=== PATIENT | female | born 1940 | race Caucasian/White ===

== ENCOUNTER 2019-01-01 05:11 | Inpatient (IN) | payer OTHER ==
[~2019-01-01] VITALS: Ht 152.4 cm; Wt 60.8 kg
[2019-01-01] VITALS (7 sets, daily range): BP systolic 121–140; BP diastolic 58–69; PULSE 67–89; RESP 17–20
--- NOTE | 2019-01-01 13:20 | HP ---
Date/Time of Note Date/Time of Note DATE: 01/01/19 TIME: 13:20 Assessment/Plan VTE Prophylaxis Pharmacological prophylaxis: LMWH Assessment/Plan Hospital Course 78-year-old female with no significant past medical history who went to the local emergency room because of multiple complaints, who was found to have evidence of community-acquired pneumonia and was transferred to [facility] for further evaluation because of insurance reasons. 1. Community-acquired pneumonia (reported). -Start ceftriaxone plus Zithromax. -No evidence of any hypoxia. -Repeat CXR, for unable to view the CD of CXR from the transferring facility because of technical reasons. 2. Hyponatremia. -Sodium of 129 at the transferring facility. -Etiology unclear. -Obtain serum and urine osmolality. -Obtain a urine sodium level. 3. Left chest wall pain. -Most probably musculoskeletal in origin. -Troponin x2 from the transferring facility negative. -Trend troponins. Plan: The patient will be admitted to inpatient telemetry floor. The patient will be started on a low-cholesterol diet. The patient will be started on DVT prophylaxis. The patient will remain a full code. Activities will be as tolerated. The rest of the patient's management will be based on the clinical course and the results of diagnostic studies. Based on the patient's clinical presentation, she most probably requires at least 1 midnight's stay for further management and evaluation of her clinical presentation. The patient was seen in collaboration with Dr. Whyte. [facility] Admit Date/Time Admit Date/Time Jan 01, 2019 at 12:59 Hx of Present Illness This is an 78-year-old female who denies any significant past medical history. The patient went to the emergency room at [facility] because of pain in the mid chest and back for 2-4 weeks along with shivering and dizziness. The patient is a very poor historian. The patient was complaining of a productive cough. The patient was complaining of febrile illness. The patient verbalized poor appetite. The patient denied any nausea or vomiting. The patient was complaining of headache. The patient denied any sick contacts. The patient denied any dyspnea. The patient denied any dysuria or hematuria. In the emergency room at [facility], the patient was afebrile. The patient's chest x-ray was showing an infiltrate.(as per report) Therefore, the patient was started on antimicrobial therapy for a community-acquired pneumonia. The patient was transferred to [facility] for further evaluation because of insurance reasons. ROS Constitutional: chills, febrile Eyes: no complaints ENT: no complaints Respiratory: cough Cardiovascular: chest pain Gastrointestinal: no complaints Genitourinary: no complaints Musculoskeletal: back pain Skin: no complaints Neurologic: no complaints Endocrine: no complaints Lymphatic: no complaints Psychological: no complaints Immunologic: no complaints PMH/Family/Social Past Medical History Medical History: no pertinent history Coded Allergies: No Known Allergies (Verified Allergy, Unknown, 01/01/19) Past Surgical History Past Surgical Hx: no surgical history Social History Alcohol Use: none Smoking Status: Never smoker Drug Use: none Exam/Review of Systems Vital Signs Vitals Vital Signs Date Temp Pulse Resp B/P (MAP) Pulse Ox O2 O2 Flow FiO2 Time Delivery Rate 01/01/19 82 13:14 Exam Exam General: Adequately build 78 year-old female lying in bed in no apparent distress. HEENT: Normocephalic, atraumatic. Eyes: Anicteric sclerae, conjunctivae clear. ENT: Nasal septum midline, oral mucosa moist. Neck supple. Respiratory: Bilaterally diminished breath sounds. No use of accessory muscles of respiration. No adventitious breath sounds. Cardiovascular: S1, S2 heard. Regular rate and rhythm. Abdomen: Soft and nondistended. Minimal epigastric tenderness. Bowel sounds positive in all 4 quadrants. Genitourinary: Deferred. Extremities: No cyanosis, no clubbing, no edema. Peripheral pulses palpable. Tenderness to palpation in the left shoulder joint. Neurologic: Cranial nerves II through XII grossly intact. The patient is awake, alert, and oriented. Skin: Normal skin turgor. No skin rashes. Additional Comments Labs from the Transferring Facility CBC: WBC 4.9, hemoglobin 10.8, hematocrit 31.6, platelet count 109 CMP: Sodium 129, potassium 4.3, chloride 100, carbon dioxide 19, anion gap 10, BUN 14, creatinine 0.84, GFR 66, glucose 128, calcium 8.7, albumin 3.7, alkaline phosphatase 183, AST 53, ALT 26,. Troponin I: 0.023 Urinalysis: Urine nitrate negative, urine WBC 2. STEPHANIE MAGALLANES NP Jan 01, 2019 13:20
[2019-01-01] MEDS ORDERED: NACL 0.9% 3 ML SYG IV SCH (13:30)
[2019-01-01] MEDS ORDERED: ONDANSETRON 4 MG INJ IV PRN (13:30)
[2019-01-01] MEDS ORDERED: ACETAMINOPHEN 325 MG TAB PO PRN (13:30)
[2019-01-01] MEDS ORDERED: traMADol 50 MG TAB PO PRN (14:30)
[2019-01-01] MEDS ORDERED: hydrALAzine 20 MG INJ IV PRN (14:30)
[2019-01-01] MEDS: CEFTRIAXONE 1 GM/50 ML (PMX) 50 ML IVPB SCH (14:55)
[2019-01-01] MEDS ORDERED: AZITHROMYCIN 500MG/NS (PMX) 250 ML IVPB SCH (16:00)
[2019-01-02] VITALS (7 sets, daily range): BP systolic 90–128; BP diastolic 50–58; PULSE 63–79; RESP 17–18
[2019-01-02] MEDS ORDERED: ENOXAPARIN 40 MG/0.4 ML SYG SC SCH (09:00)
--- NOTE | 2019-01-02 12:09 | PDOCDIS ---
Discharge Instructions CONDITION [id number] Patient Condition: [id number] Stable HOME CARE INSTRUCTIONS: [id number] Diet Instructions: [id number] Regular FOLLOW UP/APPOINTMENTS Follow-up Plan Mykel Shetty MD Specialty: Internal Medicine Office Address: [address] [place], [place] [id number] Office OTHER ORDERS: Other Orders: 1. Take a regular diet. 2. Resume activities as tolerated. 3. Follow-up with your primary care physician in 1 week. If you do not have a primary care physician, please call Dr. Mykel Shetty's office. 4. Please go to the nearest emergency room if you have any significant shortness of breath, chest pain, persistent fevers, or any other unusual signs/symptoms. STEPHANIE MAGALLANES NP Jan 02, 2019 12:09
--- NOTE | 2019-01-02 12:14 | DS ---
Date/Time of Note Date/Time of Note DATE: 01/02/19 TIME: 12:10 Discharge Summary Admission/Discharge Info Admit Date/Time Jan 01, 2019 at 12:59 Discharge Date/Time Discharge Diagnosis 1. Normocytic, normochromic anemia. 2. Hyponatremia. 3. Left chest wall pain. Patient Condition: Stable Procedures CXR IMPRESSION: Mild cardiomegaly. Otherwise, no definite abnormalities are identified. Hx of Present Illness This is an 78-year-old female who denies any significant past medical history. The patient went to the emergency room at [facility] because of pain in the mid chest and back for 2-4 weeks along with shivering and dizziness. The patient is a very poor historian. The patient was complaining of a productive cough. The patient was complaining of febrile illness. The patient verbalized poor appetite. The patient denied any nausea or vomiting. The patient was complaining of headache. The patient denied any sick contacts. The patient denied any dyspnea. The patient denied any dysuria or hematuria. In the emergency room at [facility], the patient was afebrile. The patient's chest x-ray was showing an infiltrate.(as per report) Therefore, the patient was started on antimicrobial therapy for a community-acquired pneumonia. The patient was transferred to [facility] for further evaluation because of insurance reasons. Hospital Course The patient was admitted to inpatient setting. The patient was started on Zithromax plus Rocephin for reported community-acquired pneumonia. It was unable to view the CD of chest x-ray from the transferring facility because of technical reasons. The patient did not have any evidence of hypoxia. The patient did not have any underlying leukocytosis or febrile illness. The chest x-ray that was done at [facility] was negative for any underlying pneumonia. The patient had no clinical evidence of any pneumonia. Therefore, the patient's antibiotics were discontinued. The patient probably had some viral syndrome causing the patient's symptoms that made her go to the emergency room. The patient had a sodium level of 129 at the transferring facility. However, the patient's sodium level remained stable during the hospital course at [facility]. The patient also was complaining of left-sided chest wall/shoulder pain that was reproducible upon palpation, consistent with musculoskeletal pain. The patient's troponins x2 from the transferring facility as well as troponin x2 from [facility] were negative. The patient has no other acute illnesses. The patient is a fairly healthy person and does not take any routine medications at home. Any chronic conditions including left-sided chest/shoulder pain, the patient can follow-up with her primary care physician as outpatient for addressing shoulder pain. Discharge Instructions 1. Take a regular diet. 2. Resume activities as tolerated. 3. Follow-up with your primary care physician in 1 week. If you do not have a primary care physician, please call Dr. Mykel Shetty's office. 4. Please go to the nearest emergency room if you have any significant shortness of breath, chest pain, persistent fevers, or any other unusual signs/symptoms. The patient's family verbalized understanding of the discharge instructions. The patient was seen in collaboration with Dr. Whyte. Home Meds No Active Prescriptions or Reported Meds Follow-up Plan Mykel Shetty MD Specialty: Internal Medicine Office Address: [address] [place] [address] [address] [facility] Time spent on discharge: > 30 minutes Pending Labs Laboratory Tests Test 01/01/19 14:49 01/01/19 19:40 01/02/19 05:30 White Blood Count 4.3 4.9 10^3/ul (4.8-10.8) 10^3/ul (4.8-10.8) Red Blood Count 3.17 3.09 10^6/ul (4.20-5.40) 10^6/ul (4.20-5.40 ) Hemoglobin 9.9 9.8 g/dl (12.0-16.0) g/dl (12.0-16.0) Hematocrit 29.0 % (37.0-47.0) 28.8 % (37.0-47.0) Mean Corpuscular 91.5 93.2 Volume fl (82.0-101.0) fl (82.0-101.0) Mean Corpuscular 31.2 pg (29.0-33.0) 31.7 Hemoglobin pg (29.0-33.0) Mean Corpuscular 34.1 34.0 Hemoglobin Concent g/dl (32.0-37.0) g/dl (32.0-37.0) Red Cell 13.1 % (11.5-14.5) 13.3 % (11.5-14.5) Distribution Width Platelet Count 112 99 10^3/UL (140-415) 10^3/UL (140-415) Mean Platelet 11.2 fl (7.4-10.4) 11.4 fl (7.4-10.4) Volume Immature 0.200 0.200 Granulocytes % % (0.001-0.429) % (0.001-0.429) Neutrophils % 42.6 % (39.0-77.0) 34.7 % (39.0-77.0) Lymphocytes % 48.8 % (15.0-51.0) 52.4 % (15.0-51.0) Monocytes % 7.0 % (0.0-11.0) 8.7 % (0.0-11.0) Eosinophils % 0.9 % (0.0-7.0) 3.4 % (0.0-7.0) Basophils % 0.5 % (0.0-2.0) 0.6 % (0.0-2.0) Nucleated Red Blood 0.0 0.0 Cells % /100WBC (0.0-0.0) /100WBC (0.0-0.0) Immature 0.010 0.010 Granulocytes # 10^3/ul (0.0-0.031) 10^3/ul (0.0-0.031 ) Neutrophils # 1.8 1.7 10^3/ul (1.6-7.5) 10^3/ul (1.6-7.5) Lymphocytes # 2.1 2.6 10^3/ul (0.8-2.9) 10^3/ul (0.8-2.9) Monocytes # 0.3 0.4 10^3/ul (0.3-0.9) 10^3/ul (0.3-0.9) Eosinophils # 0.0 0.2 10^3/ul (0.0-0.5) 10^3/ul (0.0-0.5) Basophils # 0.0 0.0 10^3/ul (0.0-0.1) 10^3/ul (0.0-0.1) Nucleated Red Blood 0.0 0.0 Cells # 10^3/ul (0.0-0.0) 10^3/ul (0.0-0.0) Erythrocyte 30 mm/Hr (0-30) Sedimentation Rate Sodium Level 142 142 mmol/L (135-144) mmol/L (135-144) Potassium Level 4.0 3.9 mmol/L (3.5-5.1) mmol/L (3.5-5.1) Chloride Level 113 mmol/L (97-110) 110 mmol/L (97-110) Carbon Dioxide 21 mmol/L (21-31) 22 mmol/L (21-31) Level Anion Gap 8 (5-13) 10 (5-13) Blood Urea 12 mg/dl (7-20) 14 mg/dl (7-20) Nitrogen Creatinine 0.75 0.83 mg/dl (0.44-1.00) mg/dl (0.44-1.00) Est Glomerular mL/min (>60) mL/min (>60) Filtrat Rate mL/min Glucose Level 97 mg/dl (70-220) 83 mg/dl (70-220) Hemoglobin A1c 5.1 % (0-5.9) Osmolality 289 mOsm/kg (280-295) Calcium Level 9.0 8.8 mg/dl (8.4-10.2) mg/dl (8.4-10.2) Phosphorus Level 3.3 mg/dl (2.5-4.9) 3.7 mg/dl (2.5-4.9) Magnesium Level 2.1 mg/dl (1.7-2.5) 2.0 mg/dl (1.7-2.5) Total Bilirubin 0.7 mg/dl (0.2-1.3) Direct Bilirubin 0.00 mg/dl (0.00-0.20) Indirect Bilirubin 0.7 mg/dl (0-1.1) Aspartate Amino 45 IU/L (15-46) Transf (AST/SGOT) Alanine 24 IU/L (13-69) Aminotransferase (A LT/SGPT) Alkaline 170 IU/L (42-121) Phosphatase Creatine Kinase 67 IU/L (23-200) Creatine Kinase 0.9 Index Creatinine Kinase 0.59 MB (Mass) ng/ml (0.0-2.4) Troponin I < 0.012 < 0.012 ng/ml (0.000-0.120) ng/ml (0.000-0.120 ) C-Reactive Protein < 0.5 mg/dl (0.0-0.9) B-Type Natriuretic 574 PG/ML (0-450) Peptide Total Protein 7.2 g/dl (6.1-8.1) Albumin 3.6 g/dl (3.3-4.9) Globulin 3.60 g/dl (1.3-3.2) Albumin/Globulin 1.00 Ratio Thyroid Stimulating 3.930 Hormone (TSH) MIU/L (0.465-4.680) Free Thyroxine 1.31 ng/dl (0.85-1.93) Urine Color STRAW (YELLOW) Urine Clarity CLEAR (CLEAR) Urine pH 6.0 (5.0-9.0) Urine Specific 1.006 (1.003-1.030 [place] ) Urine Ketones NEGATIVE mg/dL (NEGATIVE) Urine Nitrite NEGATIVE mg/dL (NEGATIVE) Urine Bilirubin NEGATIVE mg/dL (NEGATIVE) Urine Urobilinogen NEGATIVE mg/dL (NEGATIVE) Urine Leukocyte NEGATIVE Kavon/ul Esterase Urine Hemoglobin NEGATIVE mg/dL (NEGATIVE) Urine Osmolality 286 mOsm/kg (250-1200) Urine Random 25.38 Creatinine mg/dl (20-320) Urine Random 101 mmol/L (30-90) Sodium Urine Glucose NEGATIVE mg/dL (NEGATIVE) Urine Total NEGATIVE Protein mg/dl (NEGATIVE) Triglycerides 83 mg/dl (0-149) Level Cholesterol Level 132 mg/dl (100-200) LDL Cholesterol, 71 mg/dl Calculated HDL Cholesterol 44 mg/dl (33-92) Cholesterol/HDL 3.0 RATIO Ratio Microbiology Date/Time Source Procedure Growth Status 01/01/19 19:40 Clean Catch Urine Urine Culture - Preliminary NO Resulted GROWTH AFTER 24 HOURS STEPHANIE MAGALLANES NP Jan 02, 2019 12:14
[2019-01-02] MEDS: CEFTRIAXONE 1 GM/50 ML (PMX) 50 ML IVPB SCH (14:30)
--- NOTE | 2019-01-02 16:25 | RADRPT ---
Vent Rate: 81 bpm RR Interval: 0 msec [place] Interval: 132 msec QRS Duration: 84 msec QT Interval: 420 msec QTC Interval: 487 msec P-R-T [place]: -2 - 43 - 6 degrees Normal sinus rhythm Possible Inferior infarct , age undetermined Abnormal ECG Electronically Signed By: Abhishek Johnson
== END 2019-01-02 15:40 | disposition home or self-care (01) | DRG 194 ==
LOC: 6WM 12:59
PROVIDERS: ADMIT Family Medicine; ATTEND Family Medicine
DX: J18.9 Pneumonia, unspecified organism (principal); E87.1 Hypo-osmolality and hyponatremia; R07.89 Other chest pain
CPT/HCPCS: 71045; 80048; 80053; 80061; 81003; 82550; 82553; 83036; 83735; 83880; 83930; 83935; 84100; 84155; 84300; 84439; 84443; 84484; 85025; 85651; 86140; 87040; 87086; 93005; J0456; J0696; J1650

== ENCOUNTER 2019-02-20 10:22 | Emergency (ER) | payer OTHER ==
[~2019-02-20] VITALS: Ht 154.9 cm; Wt 56.0 kg
[2019-02-20 10:33] VITALS: Ht 154.9 cm; Wt 56.0 kg
[2019-02-20] MEDS ORDERED: KETOROLAC 15 MG INJ IV STA (11:37)
--- NOTE | 2019-02-20 13:17 | ERD ---
ER Documentation Chief Complaint Chief Complaint bilateral shoulder & chest pain x3 mths HPI 78-year-old female presents to the ED complaining of left-sided chest wall pain. Patient has had similar pains intermittently for over 1 year. Over the last several days she has diffuse left-sided, sharp and crampy chest wall pain exace rbated by movement. Denies shortness of breath or palpitations. No abdominal pain, nausea vomiting. No headache neck or back pain. No cough or hemoptysis. Denies leg pain or swelling. No fevers or chills. ROS All systems reviewed and are negative except as per history of present illness. Medications Home Meds No Active Prescriptions or Reported Meds Allergies Allergies: Coded Allergies: No Known Allergies (Verified Allergy, Unknown, 02/20/19) PMhx/Soc History of Surgery: No Anesthesia Reaction: No Hx Neurological Disorder: No Hx Respiratory Disorders: No Hx Cardiac Disorders: No Hx Psychiatric Problems: No Hx Miscellaneous Medical Probl: Yes (CHRONIC BACK PAIN ) Hx Alcohol Use: No Hx Substance Use: No Hx Tobacco Use: No Smoking Status: Never smoker FmHx No stroke or cancer Physical Exam Vitals Vital Signs Date Temp Pulse Resp B/P (MAP) Pulse Ox O2 O2 Flow FiO2 Time Delivery Rate 02/20/19 79 18 105/54 100 Room Air 12:33 (71) 02/20/19 87 18 130/54 100 Room Air 11:17 (79) 02/20/19 98.3 97 18 152/70 98 10:33 (97) Physical Exam Const: No acute distress Head: Atraumatic Eyes: Normal Conjunctiva ENT: Normal External Ears, Nose and Mouth. Neck: Full range of motion. No meningismus. Resp: Clear to auscultation bilaterally Cardio: Regular rate and rhythm, no murmurs Abd: Soft, non tender, non distended. Normal bowel sounds Skin: No petechiae or rashes Back: No midline or flank tenderness Ext: No cyanosis, or edema Neur: Awake and alert Psych: Normal Mood and Affect Result Diagram: 02/20/19 1134 02/20/19 1134 Results 24 hrs Laboratory Tests Test 02/20/19 11:34 White Blood Count 4.9 10^3/ul Red Blood Count 3.01 10^6/ul Hemoglobin 9.6 g/dl Hematocrit 27.7 % Mean Corpuscular Volume 92.0 fl Mean Corpuscular Hemoglobin 31.9 pg Mean Corpuscular Hemoglobin Concent 34.7 g/dl Red Cell Distribution Width 13.0 % Platelet Count 125 10^3/UL Mean Platelet Volume 11.8 fl Immature Granulocytes % 0.200 % Neutrophils % 52.6 % Lymphocytes % 32.6 % Monocytes % 13.2 % Eosinophils % 0.8 % Basophils % 0.6 % Nucleated Red Blood Cells % 0.0 /100WBC Immature Granulocytes # 0.010 10^3/ul Neutrophils # 2.6 10^3/ul Lymphocytes # 1.6 10^3/ul Monocytes # 0.7 10^3/ul Eosinophils # 0.0 10^3/ul Basophils # 0.0 10^3/ul Nucleated Red Blood Cells # 0.0 10^3/ul Sodium Level 133 mmol/L Potassium Level 4.4 mmol/L Chloride Level 103 mmol/L Carbon Dioxide Level 21 mmol/L Anion Gap 9 Blood Urea Nitrogen 11 mg/dl Creatinine 0.82 mg/dl Est Glomerular Filtrat Rate mL/min mL/min Glucose Level 100 mg/dl Calcium Level 8.6 mg/dl Troponin I < 0.012 ng/ml Current Medications Medications Dose Sig/Argenis Start Time Status Last (Trade) Ordered Route PRN Stop Time Admin Dose Reason Admin Ketorolac 15 mg ONCE STAT 02/20/19 DC 02/20/19 Tromethamine IV 11:37 11:46 (Toradol) 02/20/19 11:44 Procedures/MDM DOCUMENTS REVIEWED: ED nurse, prior ED, prior records EKG: Time: 10:40. Sinus rhythm. Ventricular rate 95. Normal IN and QRS. No acute ST segment elevation or depression. No ectopy. Normal axis. My Interp retation IMAGING: PROCEDURE: XR Chest. CLINICAL INDICATION: Chest pain TECHNIQUE: Single frontal view of the chest was obtained. COMPARISON: 01/01/2019 FINDINGS: The heart is within normal limits. The thoracic aorta is calcified. There is mild left upper lobe linear atelectasis. The lungs are otherwise clear. There is no pleural effusion or pneumothorax. RPTAT: AA IMPRESSION: Mild left upper lobe linear atelectasis. Calcified aorta consistent with atherosclerotic disease. .Edmond Murillo MD, MD Date Time Electronically viewed and signed by .Edmond Murillo MD, MD on 02/20/2019 12:00 .S/ MEDICAL DECISION MAKIN-year-old female presents to the ED complaining of left-sided chest wall pain. CBC remarkable for anemia and thrombocytopenia consistent with prior results but no leukocytosis. Chemistry reveals mild hyponatremia but no other electrolyte abnormalities, renal insufficiency or hyperglycemia. Chest x-ray negative for pneumonia, mass or congestive heart failure. EKG reveals no evidence of ischemia or dysrhythmia. Troponin is negative. Patient presents with exacerbation of chronic chest wall pain which she has had for many years. Symptoms improved with nonsteroidal anti- inflammatories. Patient's thoracic symptoms have stabilized while in the department and are stable for outpatient follow up. Exam and work up not consistent w/ ischemia, arrhythmia, PE or dissection. Stable for discharge with precautionary instructions and outpatient follow-up as counseled. Counseled patient and family regarding diagnostic workup, diagnosis and need for followup. Understands to return to ED if symptoms recur, worsen or any other concerns. Departure Diagnosis: Primary Impression: Chronic chest wall pain Additional Impression: Anemia Anemia type: unspecified type Qualified Codes: D64.9 - Anemia, unspecified Condition: SAMIR Song MD February 20, 2019 13:17
[2019-02-20 14:09] VITALS: BP 112/59; PULSE 76; RESP 18
== END 2019-02-20 14:11 | disposition home or self-care (01) ==
LOC: E/R 10:22
DX: R07.89 Other chest pain (principal); D64.9 Anemia, unspecified; R40.2142 Coma scale, eyes open, spontaneous, at arrival to emergency department; R40.2362 Coma scale, best motor response, obeys commands, at arrival to emergency department; R40.2252 Coma scale, best verbal response, oriented, at arrival to emergency department
CPT/HCPCS: 71045; 80048; 84484; 85025; 93005; 96374; J1885; Z7502